=== PATIENT | male | born 1970 | race Caucasian/White ===

== ENCOUNTER 2017-05-02 02:16 | Emergency (ER) | payer OTHER ==
[~2017-05-02] VITALS: Ht 167.6 cm; Wt 88.5 kg
[2017-05-02 02:25] VITALS: BP 122/73; PULSE 109; RESP 20; TEMP 99; O2SAT 96
[2017-05-02] MEDS ORDERED: ACETAMINOPHEN/HYDROcodone 325 MG/5 MG TAB PO ONE (02:45)
[2017-05-02] MEDS ORDERED: TETANUS/DIPHTHERIA TOXOID ADULT 0.5 ML VIAL IM ONE (02:45)
[2017-05-02] MEDS ORDERED: LIDOCAINE HCL 1% 50 ML VIAL INFIL ONE (02:45)
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
[2017-05-02] MEDS ORDERED: ceFAZolin 2 GM PREMIX 50 ML IV ONE (04:00)
--- NOTE | 2017-05-02 04:26 | RADRPT ---
EXAM DATE/TIME: 05/02/2017 03:53 [facility] COMPARISON: HAND LEFT COMPLETE ([id number]), May 02, 2017, 2:38. INDICATIONS : Post Reduction MEDICAL HISTORY : None. SURGICAL HISTORY : None. ENCOUNTER: Subsequent ACUITY: 1 day PAIN SCORE: 6/10 LOCATION: Left Hand FINDINGS: Limited AP and oblique views of the left hand were obtained and demonstrate reduction of the previous ly noted dislocation at the level of the first metacarpal phalangeal joint. The alignment is anatomic . The finding on the detail is obscured by overlying casting material. There is no visualized fractur e. CONCLUSION: Reduction of the previously noted dislocation. Jose Maria Zelaya MD on May 02, 2017 at 4:24 Board Certified Radiologist. This report was verified electronically.
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
[2017-05-02] MEDS ORDERED: AUGM875T3 PO (04:56)
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
[2017-05-02 05:23] VITALS: BP 120/70; PULSE 90; RESP 18; O2SAT 98
== END 2017-05-02 05:39 | disposition home or self-care (01) ==
LOC: NEPE 02:16
DX: S63.105A Unspecified dislocation of left thumb, initial encounter (principal); S01.01XA Laceration without foreign body of scalp, initial encounter; S61.012A Laceration without foreign body of left thumb without damage to nail, initial encounter; V28.4XXA Motorcycle driver injured in noncollision transport accident in traffic accident, initial encounter; Y92.524 Gas station as the place of occurrence of the external cause; Z23 Encounter for immunization
CPT/HCPCS: 12002; 26641; 70450; 71010; 72125; 72170; 73120; 73130; 90471; 90714; 96365; 99285; J0690; L3808; 29130; 64450